=== PATIENT | male | born 1970 | race Two or more races ===

== ENCOUNTER 2018-03-05 03:55 | Inpatient (IN) | payer SELFPAY ==
[~2018-03-05] VITALS: Ht 185.4 cm; Wt 108.0 kg
[2018-03-05 04:00] VITALS: BP 145/91
[2018-03-05] MEDS ORDERED: Solu-MEDROL 125mg Inj IVP ONE (04:30)
[2018-03-05] MEDS ORDERED: Albuterol/Ipratropium 3ml neb HHN ONE (04:30)
--- NOTE | 2018-03-05 04:36 | Emergency Room Report ---
History of Present Illness General Chief Complaint: shortness of breath Source: Patient Present Illness HPI Patient is a 47-year-old male presents after increased difficulty breathing. Patient reports having prior history of pneumonia as well as CHF. He reports having the history of type 2 diabetes. He reports having increased shortness of breath. He reports the cough with clear sputum. The patient had previously been on diuretics. He states in the past is had prior diagnosis of heart failure. Allergies: Coded Allergies: No Known Allergies (Unverified , 03/05/18) Patient History Past Medical History: DM, COPD, other - heart failure Reviewed Nursing Documentation: PMH: Agreed; PSxH: Agreed Nursing Documentation-PMH Hx Hypertension: Yes Hx Diabetes: Yes Review of Systems All Other Systems: negative except mentioned in HPI Physical Exam Vital Signs Date Time Temp Pulse Resp B/P (MAP) Pulse Ox O2 Delivery O2 Flow Rate FiO2 03/05/18 03:58 98.6 112 18 145/91 98 98.6 03/05/18 04:00 Room Air Sp02 EP Interpretation: reviewed, normal General Appearance: normal inspection, alert, obese, Chronically Ill Head: atraumatic ENT: normal ENT inspection, hearing grossly normal, normal voice Neck: normal inspection, full range of motion, supple, no bony tend Respiratory: normal inspection, no respiratory distress, no retraction, wheezing Cardiovascular #1: no edema, tachycardia Gastrointestinal: normal inspection, normal bowel sounds, non tender, soft, no guarding, no hernia Genitourinary: no CVA tenderness Musculoskeletal: normal inspection, back normal, normal range of motion Neurologic: normal inspection, alert, oriented x3, responsive, 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 Total critical care time excluding procedures approximately 45 minutes. Medical Decision Making Diagnostic Impression: Primary Impression: Pulmonary edema Additional Impression: Hypoxemia ER Course Patient presented for chest pain.Differential diagnosis included but was not limited to acute coronary syndrome, pulmonary embolism, pneumonia, aortic dissection, shingles, pneumothorax, aortic dissection, esophageal rupture, pericarditis. Because of complexity of patient's case laboratory testing and imaging studies were ordered.Patient was started on IV Lasix and given IV nitroglycerin. He was started on IV antibiotics. Patient has laboratory testing was notable for elevated B type nitrate peptide consistent with cardiogenic pulmonary edema. The patient was started on BiPAP and given aspirin. The patient noted have some improvement in his respiratory rate and heart rate The patient's white blood count was also noted to be elevated consistent with some possible underlying pneumonia. Dr. Rojelio Leonard was contacted for inpatient management due to panel physician. Labs Test 03/05/18 04:15 03/05/18 04:50 White Blood Count 18.6 K/UL (4.8-10.8) Red Blood Count 4.93 M/UL (4.70-6.10) Hemoglobin 14.6 G/DL (14.2-18.0) Hematocrit 40.7 % (42.0-52.0) Mean Corpuscular Volume 82 FL (80-99) Mean Corpuscular Hemoglobin 29.7 PG (27.0-31.0) Mean Corpuscular Hemoglobin Concent 36.0 G/DL (32.0-36.0) Red Cell Distribution Width 11.4 % (11.6-14.8) Platelet Count 288 K/UL (150-450) Mean Platelet Volume 8.3 FL (6.5-10.1) Neutrophils (%) (Auto) % (45.0-75.0) Lymphocytes (%) (Auto) % (20.0-45.0) Monocytes (%) (Auto) % (1.0-10.0) Eosinophils (%) (Auto) % (0.0-3.0) Basophils (%) (Auto) % (0.0-2.0) Sodium Level 139 MMOL/L (136-145) Potassium Level 3.6 MMOL/L (3.5-5.1) Chloride Level 105 MMOL/L (98-107) Carbon Dioxide Level 20 MMOL/L (21-32) Anion Gap 14 mmol/L (5-15) Blood Urea Nitrogen 15 mg/dL (7-18) Creatinine 1.2 MG/DL (0.55-1.30) Estimat Glomerular Filtration Rate > 60 mL/min (>60) Glucose Level 143 MG/DL (74-106) Lactic Acid Level 2.00 mmol/L (0.4-2.0) Calcium Level 8.7 MG/DL (8.5-10.1) Total Bilirubin 0.6 MG/DL (0.2-1.0) Aspartate Amino Transf (AST/SGOT) 12 U/L (15-37) Alanine Aminotransferase (ALT/SGPT) 16 U/L (12-78) Alkaline Phosphatase 81 U/L (46-116) Total Creatine Kinase 85 U/L (26-308) Creatine Kinase MB 1.0 NG/ML (0.0-3.6) Creatine Kinase MB Relative Index 1.1 Troponin I 0.228 ng/mL (0.000-0.056) Pro-B-Type Natriuretic Peptide 1233 pg/mL (0-125) Total Protein 7.2 G/DL (6.4-8.2) Albumin 3.5 G/DL (3.4-5.0) Globulin 3.7 g/dL Albumin/Globulin Ratio 0.9 (1.0-2.7) Urine Color Pale yellow Urine Appearance Clear Urine pH 5 (4.5-8.0) Urine Specific [place] 1.010 (1.005-1.035) Urine Protein Negative (NEGATIVE) Urine Glucose (UA) Negative (NEGATIVE) Urine Ketones Negative (NEGATIVE) Urine Occult Blood Negative (NEGATIVE) Urine Nitrite Negative (NEGATIVE) Urine Bilirubin Negative (NEGATIVE) Urine Urobilinogen Normal MG/DL (0.0-1.0) Urine Leukocyte Esterase Negative (NEGATIVE) EKG Diagnostic Results Rate: tachycardiac - 117 ST Segments: no acute changes Rhythm Strip Diag. Results EP Interpretation: yes Rhythm: no PVC's Last Vital Signs Date Time Temp Pulse Resp B/P (MAP) Pulse Ox O2 Delivery O2 Flow Rate FiO2 03/05/18 04:27 115 22 Room Air 03/05/18 04:27 90 03/05/18 04:00 98.6 145/91 98.6 Status: improved Disposition: ADMITTED INPATIENT Condition: Serious Referrals: NOT CHOSEN IPA/,REFERRING (PCP) Jose Doyle MD Mar 05, 2018 04:36
[2018-03-05 04:49] LABS: HEMATOCRIT 40.7 % (42.0-52.0); HEMOGLOBIN 14.6 G/DL (14.2-18.0); MEAN CORPUSCULAR VOLUME 82 FL (80-99); PLATELET COUNT 288 K/UL (150-450); RED BLOOD COUNT 4.93 M/UL (4.70-6.10); RED CELL DISTRIBUTION WIDTH 11.4 % (11.6-14.8); WHITE BLOOD COUNT 18.6 K/UL (4.8-10.8)
[2018-03-05 05:00] VITALS: BP 154/104
[2018-03-05 05:00] LABS: ANION GAP 14 mmol/L (5-15); BLOOD UREA NITROGEN 15 mg/dL (7-18); CALCIUM 8.7 MG/DL (8.5-10.1); CARBON DIOXIDE 20 MMOL/L (21-32); CHLORIDE 105 MMOL/L (98-107); CREATININE 1.2 MG/DL (0.55-1.30); POTASSIUM 3.6 MMOL/L (3.5-5.1); SODIUM 139 MMOL/L (136-145)
[2018-03-05 05:12] LABS: ALANINE AMINOTRANSFERASE 16 U/L (12-78); ALBUMIN 3.5 G/DL (3.4-5.0); ALBUMIN/GLOBULIN RATIO 0.9 (1.0-2.7); ALKALINE PHOSPHATASE 81 U/L (46-116); ASPARTATE AMINO TRANSFERASE 12 U/L (15-37); BILIRUBIN,TOTAL 0.6 MG/DL (0.2-1.0); CREATINE KINASE 85 U/L (26-308)
[2018-03-05 05:15] LABS: APPEARANCE,URINE CLEAR; BILIRUBIN, URINE NEGATIVE (NEGATIVE); COLOR,URINE PALE YELLOW; GLUCOSE, URINE (UA) NEGATIVE (NEGATIVE); KETONES,URINE NEGATIVE (NEGATIVE); LEUKOCYTE ESTERASE ,URINE NEGATIVE (NEGATIVE); NITRITE,URINE NEGATIVE (NEGATIVE); PH,URINE 5 (4.5-8.0); PROTEIN,URINE NEGATIVE (NEGATIVE); UROBILINOGEN,URINE NORMAL MG/DL (0.0-1.0)
[2018-03-05] MEDS ORDERED: Ampicillin/Sulbactam Sod 3 GM in NS 110 ML IVPB ONE (05:15)
[2018-03-05] MEDS ORDERED: Aspirin Baby 81mg ONE (05:16)
[2018-03-05] MEDS: Nitroglycerin Subl 0.4mg tab SL PRN ×2 (05:22→05:47)
[2018-03-05 05:42] VITALS: BP 162/86
--- NOTE | 2018-03-05 06:10 | Diagnostic Imaging Report ---
EXAM: XR Chest, 1 View. CLINICAL HISTORY: SOB TECHNIQUE: Frontal view of the chest. COMPARISON: No relevant prior studies available. FINDINGS: Lungs: Patchy bilateral airspace opacities, mostly within the right middle and lower lobes, most consistent with a multifocal pneumonia. Some superimposed interstitial edema may be present as well. Pleural spaces: No significant pleural effusions. No pneumothorax. Heart: Heart size top normal. Mediastinum: No mediastinal widening or shift. Bones: No acute fracture. IMPRESSION: Bilateral airspace consolidation, right more than left, suggestive of pneumonia. Questionable mild interstitial edema
[2018-03-05 06:24] VITALS: BP 139/76
[2018-03-05 07:18] VITALS: BP 131/81
[2018-03-05 08:00] VITALS: BP 138/94
[2018-03-05] MEDS ORDERED: Aspirin Baby 81mg ORAL SCH (09:00)
[2018-03-05] MEDS ORDERED: Ascorbic Acid 500mg tab ORAL SCH (09:00)
[2018-03-05] MEDS ORDERED: Aspirin EC 81mg tab ORAL SCH (09:00)
[2018-03-05] MEDS ORDERED: Albuterol/Ipratropium 3ml neb HHN PRN (10:00)
[2018-03-05] MEDS ORDERED: Nitroglycerin Subl 0.4mg tab SL PRN (10:00)
[2018-03-05] MEDS ORDERED: Acetaminophen 500mg (ES) tab ORAL PRN (10:00)
--- NOTE | 2018-03-05 10:15 | History & Physical ---
History and Physical History & Physicial DICT # [id number] Mode Leonard MD Mar 05, 2018 10:15
[2018-03-05] MEDS ORDERED: Azithromycin 250mg tab ORAL SCH (10:30)
[2018-03-05] MEDS ORDERED: cefTRIAXone 1 GM in D5W 55 ML IVPB SCH (11:00)
[2018-03-05] MEDS ORDERED: Vancomycin 1.5gm/D5W 250ml 250 ML IVPB SCH (12:00)
--- NOTE | 2018-03-05 13:28 | Consultation ---
History of Present Illness General Date patient seen: Mar 05, 2018 Time patient seen: 08:53 Chief Complaint: Upper Respiratory Illness Present Illness HPI 47 year old male with CP and SOB, cough for a few days. Cardiology consulted for elevated troponin. Vitals stable, CXR Bilateral airspace consolidation, right more than left, suggestive of pneumonia. No previous WI/PE/DVT/CVA/Arrhythmias. Allergies: Coded Allergies: No Known Allergies (Unverified , 03/05/18) Patient History Healthcare decision maker Resuscitation status Full Code Advanced Directive on File No Review of Systems Constitutional: Reports: no symptoms Eye: Reports: no symptoms ENT: Reports: no symptoms Respiratory: Reports: shortness of breath Cardiovascular: Reports: chest pain Gastrointestinal: Reports: no symptoms Genitourinary: Reports: no symptoms Musculoskeletal: Reports: no symptoms Skin: Reports: no symptoms Psychiatric: Reports: no symptoms Neurological: Reports: no symptoms Endocrine: Reports: no symptoms Hematologic/Lymphatic: Reports: no symptoms Physical Exam General Appearance: no apparent distress Lines, tubes and drains: peripheral HEENT: normocephalic, atraumatic Neck: non-tender, normal alignment Respiratory/Chest: chest wall non-tender, accessory muscle use, crackles/rales Cardiovascular/Chest: normal peripheral pulses, normal rate, regular rhythm Abdomen: normal bowel sounds, non tender, soft Extremities: normal range of motion, non-tender Skin Exam: normal pigmentation 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 Last 24 Hour Vital Signs Date Time Temp Pulse Resp B/P (MAP) Pulse Ox O2 Delivery O2 Flow Rate FiO2 03/05/18 11:19 89 18 99 Room Air 21 03/05/18 11:09 86 16 98 Room Air 21 03/05/18 10:57 96 18 95 32 03/05/18 09:40 92 20 95 32 03/05/18 08:03 104 24 95 32 03/05/18 08:00 Nasal Cannula 3.0 03/05/18 08:00 Nasal Cannula 3.0 03/05/18 08:00 95 03/05/18 08:00 98.4 99 27 131/81 97 Room Air 35 98.4 03/05/18 08:00 97.0 103 22 138/94 (109) 99 97.0 03/05/18 07:18 98.4 99 27 131/81 97 Room Air 35 98.4 03/05/18 06:38 103 26 96 Facial 30 03/05/18 06:24 103 30 139/76 100 Room Air 30 03/05/18 05:47 162/86 03/05/18 05:42 112 30 162/86 100 Room Air 03/05/18 05:23 118 25 98 Facial 30 03/05/18 05:22 152/87 03/05/18 05:00 110 28 154/104 98 Room Air 03/05/18 04:37 116 21 95 Room Air 03/05/18 04:30 110 28 Room Air 03/05/18 04:27 115 22 Room Air 03/05/18 04:27 115 22 90 Room Air 03/05/18 04:00 100 18 Room Air 03/05/18 04:00 98.6 100 18 145/91 98 Room Air 98.6 03/05/18 03:58 98.6 112 18 145/91 95 Room Air 98.6 Intake and Output 03/04/18 03/05/18 19:00 07:00 Intake Total 100 ml Balance 100 ml Intake IV Total 100 ml Laboratory Tests Test 03/05/18 04:15 03/05/18 04:50 03/05/18 06:18 White Blood Count 18.6 K/UL (4.8-10.8) H Red Blood Count 4.93 M/UL (4.70-6.10) Hemoglobin 14.6 G/DL (14.2-18.0) Hematocrit 40.7 % (42.0-52.0) L Mean Corpuscular Volume 82 FL (80-99) Mean Corpuscular Hemoglobin 29.7 PG (27.0-31.0) Mean Corpuscular Hemoglobin Concent 36.0 G/DL (32.0-36.0) Red Cell Distribution Width 11.4 % (11.6-14.8) L Platelet Count 288 K/UL (150-450) Mean Platelet Volume 8.3 FL (6.5-10.1) Neutrophils (%) (Auto) % (45.0-75.0) Lymphocytes (%) (Auto) % (20.0-45.0) Monocytes (%) (Auto) % (1.0-10.0) Eosinophils (%) (Auto) % (0.0-3.0) Basophils (%) (Auto) % (0.0-2.0) Differential Total Cells Counted 100 Neutrophils % (Manual) 80 % (45-75) H Lymphocytes % (Manual) 19 % (20-45) L Monocytes % (Manual) 1 % (1-10) Eosinophils % (Manual) 0 % (0-3) Basophils % (Manual) 0 % (0-2) Band Neutrophils 0 % (0-8) Platelet Estimate Adequate Platelet Morphology Normal Red Blood Cell Morphology Normal Sodium Level 139 MMOL/L (136-145) Potassium Level 3.6 MMOL/L (3.5-5.1) Chloride Level 105 MMOL/L (98-107) Carbon Dioxide Level 20 MMOL/L (21-32) L Anion Gap 14 mmol/L (5-15) Blood Urea Nitrogen 15 mg/dL (7-18) Creatinine 1.2 MG/DL (0.55-1.30) Estimat Glomerular Filtration Rate > 60 mL/min (>60) Glucose Level 143 MG/DL (74-106) H Lactic Acid Level 2.00 mmol/L (0.4-2.0) 2.10 mmol/L (0.66-2.22) Calcium Level 8.7 MG/DL (8.5-10.1) Total Bilirubin 0.6 MG/DL (0.2-1.0) Aspartate Amino Transf (AST/SGOT) 12 U/L (15-37) L Alanine Aminotransferase (ALT/SGPT) 16 U/L (12-78) Alkaline Phosphatase 81 U/L (46-116) Total Creatine Kinase 85 U/L (26-308) Creatine Kinase MB 1.0 NG/ML (0.0-3.6) Creatine Kinase MB Relative Index 1.1 Troponin I 0.228 ng/mL (0.000-0.056) Pro-B-Type Natriuretic Peptide 1233 pg/mL (0-125) H Total Protein 7.2 G/DL (6.4-8.2) Albumin 3.5 G/DL (3.4-5.0) Globulin 3.7 g/dL Albumin/Globulin Ratio 0.9 (1.0-2.7) L Urine Color Pale yellow Urine Appearance Clear Urine pH 5 (4.5-8.0) Urine Specific [place] 1.010 (1.005-1.035) Urine Protein Negative (NEGATIVE) Urine Glucose (UA) Negative (NEGATIVE) Urine Ketones Negative (NEGATIVE) Urine Occult Blood Negative (NEGATIVE) Urine Nitrite Negative (NEGATIVE) Urine Bilirubin Negative (NEGATIVE) Urine Urobilinogen Normal MG/DL (0.0-1.0) Urine Leukocyte Esterase Negative (NEGATIVE) Urine Opiates Screen Negative (NEGATIVE) Urine Barbiturates Screen Negative (NEGATIVE) Phencyclidine (PCP) Screen Negative (NEGATIVE) Urine Amphetamines Screen Negative (NEGATIVE) Urine Benzodiazepines Screen Negative (NEGATIVE) Urine Cocaine Screen Negative (NEGATIVE) Urine Marijuana (THC) Screen Negative (NEGATIVE) Height (Feet): 6 Height (Inches): 1.00 Weight (Pounds): 238 Assessment/Plan Status: stable Assessment/Plan Assessment Chest pain Pneumonia Elevated troponin Plan Serial EKG/Troponin Nitro prn CP Abx for PNA Troponin elevation likely from hypoxia/infection Echocardiogram to evaluate LV function Low pretest probability for CAD - outpatient stress test, low PITA score Pulmonary toilet, oxygen, nebs Keith Sutton M.D. Mar 05, 2018 13:28
[2018-03-05] MEDS ORDERED: Piperacillin/Tazobactam 2.25 GM in D5W 55 ML IVPB SCH (14:00)
[2018-03-05] MEDS ORDERED: Zosyn 3.375gm q8h **Extended infusion IVPB SCH ×2 (14:00)
--- NOTE | 2018-03-05 17:30 | Consultation ---
DATE OF CONSULTATION: 03/05/2018 NOTE: DICTATION ENDED ABRUPTLY. PULMONARY CONSULTATION CONSULTING PHYSICIAN: Mode Leonard M.D. REASON FOR CONSULTATION: Cough and. Mode Leonard M.D. DR: FEDERICA JOB#: [id number] CC:
--- NOTE | 2018-03-05 18:45 | History and Physical Report ---
DATE OF ADMISSION: 03/05/2018 REASON FOR ADMISSION: Cough and shortness of breath. HISTORY OF PRESENT ILLNESS: The patient is a 47-year-old male smoker, visiting from [place] with diagnoses of diabetes, CHF, and COPD discharged from hospital in [place] for pneumonia 1 month ago, who presented to the hospital with shortness of breath, cough, productive of clear sputum, lower extremity edema, PND and orthopnea. He has been on diuretics a month ago, but he has been off of them since he was seen and examined in the emergency room. In the emergency room, he was afebrile, but had evidence of sinus tachycardia, saturating well on room air to 2 liters. Chest x-ray showed bilateral infiltrates and pulmonary vascular congestion. His laboratory workup was positive for a white count of 18, troponin 0.228, and an elevated pro-BNP. The patient was given Unasyn in the emergency department and admitted for further management. He also received a dose of IV Lasix in the ER. He feels better now and states that he does not want to stay, but I explained to him the gravity of his situation. PAST MEDICAL HISTORY: 1. Presumed CHF. 2. Possible COPD given his smoking history. 3. Diabetes. PAST SURGICAL HISTORY: None. ALLERGIES: No known drug allergies. MEDICATIONS: Prior to admission medications reviewed. SOCIAL HISTORY: He is visiting from [place]. He is a current daily smoker. No drug or alcohol use. FAMILY HISTORY: Noncontributory. REVIEW OF SYSTEMS: Negative other than in the history of present illness. PHYSICAL EXAMINATION: VITAL SIGNS: Temperature 98.4 degrees, pulse 99, blood pressure 131/81, respiratory rate 27, and saturating 100% on 3 liters. GENERAL: He is a well-developed and well-nourished male, no acute distress. Awake, alert, and oriented x3. HEENT: Normocephalic and atraumatic. Oropharynx is clear with moist mucous membranes and poor dentition is noted. NECK: Supple without lymphadenopathy. There is 6 cm JVD. CHEST: Scattered coarse breath sounds and rales at the bases. HEART: Regular rate and rhythm. ABDOMEN: Soft and nontender. EXTREMITIES: No cyanosis or clubbing. There is trace edema at the ankles. ANCILLARY DATA: White count 18, hemoglobin 14.6, hematocrit 40.7, and platelet count 288. Sodium 139, potassium 3.6, chloride 105, bicarbonate 20, BUN 15, creatinine 1.2, and glucose 143. Lactic acid 2. Calcium 8.7. Total bilirubin 0.8. ALT 12, AST 16, and alkaline phosphatase 81. CK 85. Troponin 0.28. ProBNP 1233. Urinalysis negative. Toxicology screen is negative. Chest x-ray with bilateral dense airspace opacities. ASSESSMENT: The patient is a 47-year-old male smoker with a questionable history of CHF and COPD and multiple pneumonias in the past, now presenting with shortness of breath, leukocytosis, bilateral infiltrates concerning for hospital-acquired pneumonia given his recent hospitalization in [place] as well as a component of decompensated heart failure and mild elevation of cardiac biomarkers. PROBLEM LIST: 1. Shortness of breath and dyspnea, likely multifactorial secondary to pneumonia and CHF. 2. Bilateral airspace opacities suggestive of a pneumonic process in the setting of recent hospitalizations. We will treat as hospital-acquired pneumonia. 3. Stated history of CHF, now with evidence of mild decompensated heart failure. 4. Mild elevation of cardiac biomarkers. 5. Diabetes. 6. Current daily smoker. TREATMENT PLAN: 1. Admit to direct observation unit. 2. Cardiac monitoring. 3. Rule out ACS with serial EKG and troponin. 4. Monitor volumes. We will start IV Lasix. 5. Follow up an echocardiogram. 6. We will start vancomycin and Zosyn given recent hospitalization. 7. Follow up cultures. 8. We will obtain an Infectious Disease consultation. 9. Sliding scale insulin. 10. Statin and aspirin. 11. Check hemoglobin A1c and lipid panel. 12. DVT prophylaxis, heparin subcutaneous. 13. Encourage abstinence from tobacco use. 14. The patient encouraged to stay in hospital workup to be completed. If he chooses to leave, against medical advice. Mode Leonard M.D. DR: FEDERICA JOB#: [id number] CC:
--- NOTE | 2018-03-05 19:45 | Consultation ---
DATE OF CONSULTATION: 03/05/2018 INFECTIOUS DISEASES CONSULTATION CONSULTING PHYSICIAN: Jeffry Davis M.D. REFERRING PHYSICIAN: Mode Leonard M.D. REASON FOR CONSULTATION: Pneumonia. HISTORY OF PRESENTING ILLNESS: This is a 47-year-old gentleman with history of diabetes, hypertension, COPD, and congestive heart failure, who came in with shortness of breath along with fever and chills. He was thought to have a pneumonia and an Infectious Diseases consultation has been obtained for antibiotics. PAST MEDICAL HISTORY: 1. History of diabetes. 2. Hypertension. 3. COPD. 4. Congestive heart failure. MEDICATIONS: As an inpatient, he is on aspirin, atorvastatin, subcutaneous heparin, Zosyn, azithromycin, Lasix, vancomycin, nitroglycerin, Tylenol, Zofran, albuterol and ipratropium. ALLERGIES: No known drug allergies. SOCIAL HISTORY: He is a smoker. He does not drink alcohol or use drugs. FAMILY HISTORY: Noncontributory. REVIEW OF SYSTEMS: RESPIRATORY: He had fever and chills. He has a cough. No shortness of breath or chest pain. CARDIAC: No chest pain. He did have palpitations. No dizziness. No syncope. GASTROINTESTINAL: No nausea. No vomiting. No abdominal pain or diarrhea. PHYSICAL EXAMINATION: VITAL SIGNS: Temperature of 98.4 degrees, T-max of 98.6 degrees, pulse of 92, respiratory rate 20, blood pressure 131/81 and O2 saturation of 95%. HEENT: Pupils equally reactive to light and accommodation. Mouth appears clean without thrush. NECK: Supple. No adenopathy. No JVD. CARDIOVASCULAR: Regular rate and rhythm. No murmurs. LUNGS: Clear to auscultation bilaterally. No crackles. No wheezes. ABDOMEN: Soft and nontender. No organomegaly. EXTREMITIES: No cyanosis, no clubbing, and no edema. LABORATORY AND DIAGNOSTIC DATA: White count 18.6, hemoglobin 14.6, hematocrit 40.7, MCV 82 and platelet count of 288. Sodium 139, potassium 3.6, chloride 105, bicarbonate 20, BUN 15, creatinine 1.2, and glucose of 143. Calcium 8.7. Total bilirubin 0.6. AST 12, ALT 16, and alkaline phosphatase 81. CK of 85. CK-MB of 1. Troponin 0.2. Beta-natriuretic peptide 1233. Total protein 7.2. Albumin 3.5. UA is showing LE negative and nitrite negative. Chest x-ray showing bilateral airspace consolidation, right more than the left, suggestive of pneumonia. ASSESSMENT: 1. This is a 47-year-old gentleman with history of diabetes, hypertension and COPD who comes in with community-acquired pneumonia. The patient is saying he has to go home today and he is leaving against medical advice. 2. Congestive heart failure. 3. Diabetes. 4. Hypertension. PLAN: 1. Continue vancomycin, Zosyn and azithromycin in the hospital. 2. We will order sputum for Gram-stain and culture. 3. We will prescribe oral Levaquin. I would like to thank, Dr. Leonard, for this consultation. Jeffry Davis M.D. DR: ELLI JOB#: [id number] CC: Mode Leonard M.D.
[2018-03-05] MEDS ORDERED: Vancomycin 1 GM in D5W 275 ML IVPB SCH (20:00)
[2018-03-05] MEDS ORDERED: Heparin 5000 units/ml inj SUBQ SCH (21:00)
[2018-03-05] MEDS ORDERED: Atorvastatin 80mg tab ORAL SCH (21:00)
[2018-03-06] MEDS ORDERED: Aspirin Baby 81mg NG SCH (09:00)
--- NOTE | 2018-03-06 14:46 | Cardiology Report ---
APPROVED REPORT EKG Measurement Heart [id number] Sinus tachycardia Possible Left atrial enlargement T wave abnormality, consider inferior ischemia Abnormal ECG
--- NOTE | 2018-03-08 11:08 | Discharge Summary ---
Discharge Summary Discharge Summary _ DATE OF ADMISSION: 03/05/2018 DATE OF DISCHARGE: 03/05/2018 REASON FOR ADMISSION: 47 years old male with past medical history of diabetes, presumed congestive heart failure and COPD , visiting from [place] , came to emergency department with shortness of breath, productive cough and lower extremity edema along with orthopnea and paroxysmal nocturnal dyspnea. Patient was recently discharged from hospital in [place], where he was treated for pneumonia. Patient also reported being on diuretic for one month. However currently off diuretic. In emergency department he was afebrile . EKG showed sinus tachycardia , no acute ischemic changes. Patient was placed on 2 L of oxygen via nasal cannula wi8th stable pulse oximetry. Chest x-ray revealed bilateral infiltrates and pulmonary vascular congestion. Laboratory workup revealed leukocytosis WBC 18.6 Elevated troponin 0.228. EKG revealed sinus tachycardia , no acute ischemic changes. Pro BNP 1233. Urine toxicology screen was negative. In emergency department patient received IV antibiotics along with intravenous Lasix. Patient felt better afterwards. Patient admitted with diagnoses of shortness of breath, pneumonia, congestive heart failure, diabetes mellitus, elevated troponin current smoker. CONSULTANTS: cloth tester ID specialist Dr. Davis [facility]: Patient admitted to telemetry floor. Cardiology and ID consults were requested. Serial troponin and EKG were ordered. Patient started on diuresis. Cardiorenal parameters and volumes were closely monitored, and nephrotoxins were avoided. Patient started on antibiotics as for presumed hospital acquired pneumonia since patient was recently hospitalized. Sputum culture was ordered. Infectious Disease doctor closely followed. Supplemental oxygen provided as needed to keep pulse oximetry above 92%. Pulmonary toilet provided. Sliding scale of insulin initiated for blood sugar management. Antiplatelet therapy and statin started . Hemoglobin A1c and lipid panel were ordered. DVT prophylaxis provided with heparin . Patient was counseled on smoking cessation. Patient declined Nicotine patch. According to [employer], elevated troponin was likely secondary to hypoxemia due to infectious process. Echocardiogram was pending to assess cardiac wall motion and left ventricular function. Patient Decided to Sign AGAINST MEDICAL ADVICE . The risks and consequences of signing AGAINST MEDICAL ADVICE were discussed with patient in detail. Patient verbalized understanding, nevertheless signed AMA form and left. FINAL DIAGNOSES: Shortness of breath and dyspnea likely multifactorial secondary to pneumonia and CHF Pneumonia CHF with mild decompensation Elevated troponin Diabetes mellitus Current smoker I have been assigned to dictate discharge summary for this account. I was not involved in the patient's management. Lulu Montano NP Mar 08, 2018 11:08
== END 2018-03-05 11:15 | disposition left against medical advice (07) | DRG 195 ==
LOC: EMR 04:29 → EDBEDREQSVC 05:21 → EDBEDREQ 05:21 → 2W 05:35 → EDBEDREQ 05:37
DX: J18.9 Pneumonia, unspecified organism (principal); I50.9 Heart failure, unspecified; R74.9 Abnormal serum enzyme level, unspecified; E11.9 Type 2 diabetes mellitus without complications; F17.200 Nicotine dependence, unspecified, uncomplicated; J44.9 Chronic obstructive pulmonary disease, unspecified
CPT/HCPCS: 36415; 71045; 80053; 80307; 81003; 82550; 82553; 82962; 83605; 83880; 84484; 85007; 85025; 87040; 93005; 94640; 94660; 94664; J7620